=== PATIENT | male | born 1935 | race Caucasian/White ===

== ENCOUNTER 2019-10-08 16:42 | Observation (INO) ==
[2019-10-08 17:57] LABS: Basophils # 0.1 10*3/uL (0.0-0.2); Basophils % 0.9 % (0.0-0.8); Eosinophils % 0.6 % (0.00-10.9); Hematocrit 34.9 VOL% (42.0-52.0); Hemoglobin 11.9 GM/DL (14.0-18.0); Immature Granulocytes % 0.4 %; Immature Granulocytes Absolute 0.03 #; Lymphocytes # 1.3 10*3/uL (1.4-4.0); Mean Corpuscular HGB Conc 34.1 GM/DL (32-36); Mean Corpuscular Volume 88.6 FL (87-102); Mean Platelet Volume 9.6 FL (9.6-12.0); Monocytes % 7.8 % (1.7-12.7); Neutrophils % 71.3 % (38.7-73.9); Platelet Count 218 T/CUMM (130-400); Red Blood Count 3.94 MC/CUMM (3.8-5.5); Red Cell Distribution Width 12.5 % (9.3-17.3); White Blood Count 6.8 T/CUMM (4-12)
[2019-10-08 18:01] LABS: Apearance,Urine CLEAR (Clear); Bilirubin,Urine Negative (Negative); Blood, Urine Negative (Negative); Glucose,Urine (UA) >=500 mg/dL (Negative); Ketones,Urine Negative (Negative); Nitrite,Urine Negative (Negative); Protein,Urine Negative; RBC,Urine 2 /HPF (0-4); Squamous Epithelial Cell,Urine Occasional /HPF (0-10); Urine Color Yellow (Yellow); Urine Specific Gravity 1.012 (1.001-1.035); Urine Urobilinogen < 2.0 EU/DL (0.2-1.0); WBC,Urine 1 /HPF (0-6)
[2019-10-08 18:08] LABS: Barbiturates Screen,Urine Negative (Negative); Benzodiazepines Screen,Urine Negative (Negative); Cannabinoid Screen,Urine Negative (Negative); Opiate Screen,Urine Negative (Negative); Phencyclidine Screen,Urine Negative (Negative)
[2019-10-08 18:19] LABS: Albumin 3.6 G/DL (3.4-5.0); Bilirubin,Total 0.4 MG/DL (0.2-1.0); Calcium 8.8 MG/DL (8.5-10.1); Osmolality,Calculated 269.7 MOS/KG (273-304); Total Protein 6.8 G/DL (6.4-8.3)
[2019-10-08] MEDS ORDERED: ACETAMINOPHEN 325 MG TABLET PO PRN (20:31)
[2019-10-08] MEDS ORDERED: DEXTROSE 50% 25 GM/50 ML VIAL IV PRN ×3 (20:31→20:36)
[2019-10-08] MEDS ORDERED: GLUCAGON 1 MG VIAL IM PRN ×3 (20:31→20:36)
[2019-10-08] MEDS ORDERED: ONDANSETRON 4 MG/2 ML VIAL IV PRN (20:31)
[2019-10-08] MEDS ORDERED: LORazepam 2 MG/1 ML VIAL IV PRN (20:37)
[2019-10-08 21:03] LABS: Troponin I < 0.015 NG/ML (0.00-0.045)
[2019-10-08 21:20] LABS: Folate > 24.0 NG/ML (5.4-24.0); Vitamin B12 520 PG/ML (211-911)
[2019-10-08] MEDS ORDERED: carvediloL 3.125 MG TABLET PO SCH (21:30)
[2019-10-08] MEDS ORDERED: SIMVASTATIN 20 MG TABLET PO SCH (21:30)
[2019-10-08] MEDS ORDERED: MAGNESIUM SULF RIDER 2 GM in PREMIX 1 EACH IV ONE ×2 (21:30→22:30)
[2019-10-08] MEDS: SODIUM CHLORIDE 0.9% 1,000 ML IV SCH (23:26)
[2019-10-08] MEDS: carvediloL 3.125 MG TABLET PO SCH (23:26)
[2019-10-08] MEDS: SIMVASTATIN 20 MG TABLET PO SCH (23:26)
[2019-10-08] MEDS: INSULIN REGULAR 100 UNIT/ML SUBCUT SCH (23:34)
[2019-10-09 05:18] LABS: Basophils # 0.1 10*3/uL (0.0-0.2); Basophils % 0.9 % (0.0-0.8); Eosinophils # 0.1 10*3/uL (0.0-0.87); Eosinophils % 1.6 % (0.00-10.9); Hematocrit 35.1 VOL% (42.0-52.0); Hemoglobin 11.5 GM/DL (14.0-18.0); Immature Granulocytes % 0.4 %; Immature Granulocytes Absolute 0.02 #; Lymphocytes % 34.4 % (21.2-54.2); Mean Corpuscular HGB Conc 32.8 GM/DL (32-36); Mean Corpuscular Volume 91.6 FL (87-102); Mean Platelet Volume 9.7 FL (9.6-12.0); Monocytes % 11.2 % (1.7-12.7); Neutrophils % 51.5 % (38.7-73.9); Platelet Count 220 T/CUMM (130-400); Red Blood Count 3.83 MC/CUMM (3.8-5.5); Red Cell Distribution Width 12.4 % (9.3-17.3); White Blood Count 5.7 T/CUMM (4-12)
[2019-10-09 05:44] LABS: Albumin 3.5 G/DL (3.4-5.0); Bilirubin,Total 0.4 MG/DL (0.2-1.0); Calcium 8.5 MG/DL (8.5-10.1); Risk Ratio 2.5; Total Protein 6.6 G/DL (6.4-8.3); VLDL CHOLESTEROL 8.2 MG/DL
[2019-10-09] MEDS: INSULIN REGULAR 100 UNIT/ML SUBCUT SCH ×4 (08:28→20:19)
[2019-10-09] MEDS ORDERED: ENOXAPARIN 40 MG/0.4 ML SYRINGE SUBCUT SCH (09:00)
[2019-10-09] MEDS: PANTOPRAZOLE 40 MG TABLET PO SCH (09:50)
[2019-10-09] MEDS: amLODIPine 5 MG TABLET PO SCH (09:50)
[2019-10-09] MEDS: ASPIRIN EC 81 MG TABLET PO SCH (09:50)
[2019-10-09] MEDS: EZETIMIBE 10 MG TABLET PO SCH (09:50)
[2019-10-09] MEDS: MAGNESIUM CHLORIDE 64 MG TABLET PO SCH (09:50)
[2019-10-09] MEDS: carvediloL 3.125 MG TABLET PO SCH (09:51)
[2019-10-09] MEDS: FINASTERIDE 5 MG TABLET PO SCH (09:51)
[2019-10-09] MEDS: LISINOPRIL/HCTZ 20-12.5 MG TABLET PO SCH (09:51)
[2019-10-09] MEDS: levETIRAcetam 500 MG TABLET PO SCH ×2 (09:51→20:19)
[2019-10-09] MEDS ORDERED: ENOXAPARIN 30 MG/0.3 ML SYRINGE SUBCUT ONE (09:53)
[2019-10-09 13:05] LABS: Troponin I < 0.015 NG/ML (0.00-0.045)
[2019-10-09 13:51] LABS: Troponin I < 0.015 NG/ML (0.00-0.045)
[2019-10-09] MEDS: SODIUM CHLORIDE 0.9% 1,000 ML IV SCH (16:01)
[2019-10-09] MEDS: carvediloL 6.25 MG TABLET PO SCH (17:03)
[2019-10-09] MEDS ORDERED: MAGNESIUM CHLORIDE 64 MG TABLET PO SCH (19:00)
[2019-10-09] MEDS: SIMVASTATIN 20 MG TABLET PO SCH (20:19)
[2019-10-09] MEDS: ENOXAPARIN 80 MG/0.8 ML SYRINGE SUBCUT SCH (21:15)
[2019-10-10] MEDS: SODIUM CHLORIDE 0.9% 1,000 ML IV SCH (03:54)
[2019-10-10 05:04] LABS: Basophils # 0.1 10*3/uL (0.0-0.2); Basophils % 0.9 % (0.0-0.8); Eosinophils # 0.2 10*3/uL (0.0-0.87); Eosinophils % 2.8 % (0.00-10.9); Hematocrit 33.8 VOL% (42.0-52.0); Hemoglobin 11.1 GM/DL (14.0-18.0); Immature Granulocytes % 0.2 %; Immature Granulocytes Absolute 0.01 #; Lymphocytes # 2.4 10*3/uL (1.4-4.0); Lymphocytes % 41.8 % (21.2-54.2); Mean Corpuscular HGB Conc 32.8 GM/DL (32-36); Mean Corpuscular Volume 90.1 FL (87-102); Monocytes % 11.1 % (1.7-12.7); Neutrophils % 43.2 % (38.7-73.9); Platelet Count 198 T/CUMM (130-400); Red Blood Count 3.75 MC/CUMM (3.8-5.5); Red Cell Distribution Width 12.6 % (9.3-17.3); White Blood Count 5.7 T/CUMM (4-12)
[2019-10-10 05:36] LABS: Calcium 8.3 MG/DL (8.5-10.1)
[2019-10-10] MEDS: INSULIN REGULAR 100 UNIT/ML SUBCUT SCH ×2 (08:43→12:44)
[2019-10-10] MEDS: MAGNESIUM CHLORIDE 64 MG TABLET PO SCH (09:11)
[2019-10-10] MEDS: FINASTERIDE 5 MG TABLET PO SCH (09:11)
[2019-10-10] MEDS: ASPIRIN EC 81 MG TABLET PO SCH (09:11)
[2019-10-10] MEDS: EZETIMIBE 10 MG TABLET PO SCH (09:11)
[2019-10-10] MEDS: PANTOPRAZOLE 40 MG TABLET PO SCH (09:12)
[2019-10-10] MEDS: carvediloL 6.25 MG TABLET PO SCH (09:12)
[2019-10-10] MEDS: amLODIPine 5 MG TABLET PO SCH (09:12)
[2019-10-10] MEDS: levETIRAcetam 500 MG TABLET PO SCH (09:14)
[2019-10-10] MEDS: ENOXAPARIN 80 MG/0.8 ML SYRINGE SUBCUT SCH (09:14)
[2019-10-10] MEDS: LISINOPRIL/HCTZ 20-12.5 MG TABLET PO SCH (09:14)
[2019-10-10 12:47] VITALS: BP 132/66
[2019-10-14] MEDS ORDERED: CYANOCOBALAMIN 1000 MCG/1 ML VIAL SUBCUT SCH (09:00)
== END 2019-10-10 15:15 | disposition home or self-care (01) ==
LOC: EDUNIT# → EDBD → N.ED 16:42 → INTOOBSV 20:29 → N.EDINP 20:29 → SUATTDRO 20:29 → N.TELES 20:54
PROVIDERS: ADMIT Emergency Medicine; ATTEND Internal Medicine

== ENCOUNTER 2022-04-02 13:58 | Observation (INO) ==
[2022-04-02 15:06] LABS: Basophils # 0.1 10*3/uL (0.0-0.2); Basophils % 0.9 % (0.0-0.8); Eosinophils # 0.1 10*3/uL (0.0-0.87); Eosinophils % 1.5 % (0.00-10.9); Hematocrit 28.5 VOL% (42.0-52.0); Hemoglobin 9.1 GM/DL (14.0-18.0); Immature Granulocytes % 0.4 %; Immature Granulocytes Absolute 0.02 #; Lymphocytes # 1.5 10*3/uL (1.4-4.0); Mean Corpuscular HGB Conc 31.9 GM/DL (32-36); Mean Corpuscular Volume 87.7 FL (87-102); Mean Platelet Volume 9.8 FL (9.6-12.0); Monocytes # 0.6 10*3/uL (0.11-0.8); Monocytes % 11.5 % (1.7-12.7); Neutrophils % 58.7 % (38.7-73.9); Platelet Count 247 T/CUMM (130-400); Red Blood Count 3.25 MC/CUMM (3.8-5.5); Red Cell Distribution Width 15.6 % (9.3-17.3); White Blood Count 5.4 T/CUMM (4-12)
[2022-04-02] MEDS ORDERED: FUROSEMIDE 40 MG/4 ML VIAL IV STA (15:40)
[2022-04-02 16:33] LABS: Albumin 3.4 G/DL (3.4-5.0); Bilirubin,Total 0.7 MG/DL (0.20-1.00); Calcium 8.3 MG/DL (8.5-10.1); Osmolality,Calculated 277.1 MOS/KG (273-304); Potassium 4.5 MMOL/L (3.5-5.1); Total Protein 6.4 G/DL (6.4-8.2)
[2022-04-02] MEDS ORDERED: ONDANSETRON 4 MG/2 ML VIAL IV PRN (17:35)
[2022-04-02] MEDS ORDERED: ACETAMINOPHEN 325 MG TABLET PO PRN (17:35)
[2022-04-02] MEDS ORDERED: GLUCAGON 1 MG VIAL IM PRN (17:39)
[2022-04-02] MEDS ORDERED: DEXTROSE 10% 250 ML BAG IV PRN (17:39)
[2022-04-02] MEDS: CARBIDOPA/LEVODOPA 25-100 MG TABLET PO SCH (21:25)
[2022-04-02] MEDS: SIMVASTATIN 20 MG TABLET PO SCH (21:25)
[2022-04-02] MEDS: carvediloL 3.125 MG TABLET PO SCH (21:25)
[2022-04-02] MEDS: APIXABAN 5 MG TABLET PO SCH (21:25)
[2022-04-02] MEDS: levETIRAcetam 500 MG TABLET PO SCH (21:26)
[2022-04-02] MEDS: INSULIN LISPRO 100 UNIT/ML SUBCUT SCH (21:27)
[2022-04-03 04:19] LABS: Basophils # 0.1 10*3/uL (0.0-0.2); Eosinophils # 0.1 10*3/uL (0.0-0.87); Hematocrit 30.3 VOL% (42.0-52.0); Hemoglobin 9.5 GM/DL (14.0-18.0); Immature Granulocytes % 0.2 %; Immature Granulocytes Absolute 0.01 #; Lymphocytes # 1.5 10*3/uL (1.4-4.0); Lymphocytes % 24.5 % (21.2-54.2); Mean Corpuscular HGB Conc 31.4 GM/DL (32-36); Mean Corpuscular Volume 87.6 FL (87-102); Mean Platelet Volume 9.4 FL (9.6-12.0); Monocytes # 0.7 10*3/uL (0.11-0.8); Monocytes % 12.4 % (1.7-12.7); Neutrophils % 59.9 % (38.7-73.9); Platelet Count 250 T/CUMM (130-400); Red Blood Count 3.46 MC/CUMM (3.8-5.5); Red Cell Distribution Width 15.6 % (9.3-17.3); White Blood Count 5.9 T/CUMM (4-12)
[2022-04-03 04:40] LABS: Albumin 3.2 G/DL (3.4-5.0); Bilirubin,Total 0.6 MG/DL (0.20-1.00); Calcium 8.5 MG/DL (8.5-10.1); Osmolality,Calculated 277.8 MOS/KG (273-304); Total Protein 6.6 G/DL (6.4-8.2)
[2022-04-03] MEDS: INSULIN LISPRO 100 UNIT/ML SUBCUT SCH ×4 (07:08→21:05)
[2022-04-03] MEDS ORDERED: MAGNESIUM SULF RIDER 4 GM/100 ML PREMIX IV PRN (07:45)
[2022-04-03] MEDS ORDERED: MAGNESIUM SULF RIDER 2 GM/50 ML PREMIX IV PRN (07:45)
[2022-04-03] MEDS ORDERED: FUROSEMIDE 20 MG/2 ML VIAL IV ONE (09:00)
[2022-04-03] MEDS: FUROSEMIDE 40 MG/4 ML VIAL IV SCH ×2 (09:40→16:21)
[2022-04-03] MEDS: amLODIPine 5 MG TABLET PO SCH (09:41)
[2022-04-03] MEDS: CARBIDOPA/LEVODOPA 25-100 MG TABLET PO SCH ×2 (09:41→21:04)
[2022-04-03] MEDS: carvediloL 6.25 MG TABLET PO SCH ×3 (09:41→21:04)
[2022-04-03] MEDS: levETIRAcetam 500 MG TABLET PO SCH ×2 (09:41→21:04)
[2022-04-03] MEDS: EZETIMIBE 10 MG TABLET PO SCH (09:41)
[2022-04-03] MEDS: PANTOPRAZOLE 40 MG TABLET PO SCH (09:41)
[2022-04-03] MEDS: APIXABAN 5 MG TABLET PO SCH ×2 (09:41→21:04)
[2022-04-03] MEDS: FINASTERIDE 5 MG TABLET PO SCH (09:41)
[2022-04-03] MEDS: carvediloL 3.125 MG TABLET PO SCH (10:07)
[2022-04-03] MEDS: SIMVASTATIN 20 MG TABLET PO SCH (21:04)
[2022-04-04 05:25] LABS: Basophils # 0.1 10*3/uL (0.0-0.2); Basophils % 0.9 % (0.0-0.8); Eosinophils # 0.2 10*3/uL (0.0-0.87); Eosinophils % 2.6 % (0.00-10.9); Hematocrit 29.3 VOL% (42.0-52.0); Hemoglobin 9.3 GM/DL (14.0-18.0); Immature Granulocytes % 0.4 %; Immature Granulocytes Absolute 0.02 #; Lymphocytes # 1.5 10*3/uL (1.4-4.0); Lymphocytes % 26.6 % (21.2-54.2); Mean Corpuscular HGB Conc 31.7 GM/DL (32-36); Mean Corpuscular Volume 86.9 FL (87-102); Mean Platelet Volume 9.5 FL (9.6-12.0); Monocytes # 0.8 10*3/uL (0.11-0.8); Monocytes % 13.2 % (1.7-12.7); Neutrophils % 56.3 % (38.7-73.9); Platelet Count 245 T/CUMM (130-400); Red Blood Count 3.37 MC/CUMM (3.8-5.5); Red Cell Distribution Width 15.5 % (9.3-17.3); White Blood Count 5.7 T/CUMM (4-12)
[2022-04-04 05:38] LABS: Calcium 8.3 MG/DL (8.5-10.1); Osmolality,Calculated 274.8 MOS/KG (273-304); Potassium 3.4 MMOL/L (3.5-5.1)
[2022-04-04] MEDS: INSULIN LISPRO 100 UNIT/ML SUBCUT SCH (07:01)
[2022-04-04 08:09] VITALS: BP 126/60
[2022-04-04] MEDS: FUROSEMIDE 40 MG/4 ML VIAL IV SCH (08:17)
[2022-04-04] MEDS: EZETIMIBE 10 MG TABLET PO SCH (08:17)
[2022-04-04] MEDS: FINASTERIDE 5 MG TABLET PO SCH (08:17)
[2022-04-04] MEDS: amLODIPine 5 MG TABLET PO SCH (08:18)
[2022-04-04] MEDS: CARBIDOPA/LEVODOPA 25-100 MG TABLET PO SCH (08:18)
[2022-04-04] MEDS: APIXABAN 5 MG TABLET PO SCH (08:18)
[2022-04-04] MEDS: carvediloL 6.25 MG TABLET PO SCH (08:18)
[2022-04-04] MEDS: levETIRAcetam 500 MG TABLET PO SCH (08:18)
[2022-04-04] MEDS: PANTOPRAZOLE 40 MG TABLET PO SCH (08:18)
[2022-04-04] MEDS ORDERED: POTASSIUM CHLORIDE 20 MEQ TABLET PO ONE (09:00)
[2022-04-04] MEDS ORDERED: lisinopriL 20 MG TABLET PO SCH (12:00)
[2022-04-04] MEDS ORDERED: MAGNESIUM OXIDE 400 MG TABLET PO SCH (21:00)
[2022-04-04] MEDS ORDERED: MAGNESIUM CHLORIDE 64 MG TABLET PO SCH (21:00)
[2022-04-05] MEDS ORDERED: MAGNESIUM CHLORIDE 64 MG TABLET PO SCH (09:00)
[2022-04-05] MEDS ORDERED: POTASSIUM CHLORIDE 20 MEQ TABLET PO SCH (09:00)
[2022-04-05] MEDS ORDERED: FUROSEMIDE 40 MG TABLET PO SCH (09:00)
[2022-04-05] MEDS ORDERED: ASPIRIN EC 81 MG TABLET PO SCH (09:00)
[2022-04-15] MEDS ORDERED: CYANOCOBALAMIN 1000 MCG/1 ML VIAL SUBCUT SCH (09:00)
== END 2022-04-04 13:01 | disposition home or self-care (01) ==
LOC: N.EDINP 13:58 → N.ED 13:58 → N.2W 18:34
PROVIDERS: ADMIT Internal Medicine; ATTEND Internal Medicine